=== PATIENT | male | born 1975 | race Caucasian/White ===

== ENCOUNTER 2019-10-01 16:24 | Emergency (ER) | payer OTHER ==
[~2019-10-01] VITALS: Ht 193 cm; Wt 104.3 kg
[2019-10-01 17:15] VITALS: BP 138/72
--- NOTE | 2019-10-01 18:03 | PHYS DOC ---
Adult General Chief Complaint Chief Complaint: HEMORRHOIDS HPI HPI Patient is a 43 year old female who presents with rectal pain. The patient states that this afternoon around 3:00 he had a really hard stool and after using the bathroom he had "flesh" outside of his rectum. He states he has a history of hemorrhoids and describes the pain as 6 out of 10 in severity and sharp. Review of Systems Review of Systems Constitutional: Denies fever or chills [] Eyes: Denies change in visual acuity, redness, or eye pain [] HENT: Denies nasal congestion or sore throat [] Respiratory: Denies cough or shortness of breath [] Cardiovascular: No additional information not addressed in HPI [] GI: Denies abdominal pain, nausea, vomiting, bloody stools or diarrhea. Report Rectal pain. : Denies dysuria or hematuria [] Musculoskeletal: Denies back pain or joint pain [] Integument: Denies rash or skin lesions [] Neurologic: Denies headache, focal weakness or sensory changes [] Endocrine: Denies polyuria or polydipsia [] Complete systems were reviewed and found to be within normal limits, except as documented in this note. Physical Exam Physical Exam Constitutional: Well developed, well nourished, no acute distress, non-toxic appearance. [] HENT: Normocephalic, atraumatic, bilateral external ears normal, oropharynx moist, no oral exudates, nose normal. [] Eyes: PERRLA, EOMI, conjunctiva normal, no discharge. [] Neck: Normal range of motion, no tenderness, supple, no stridor. [] Cardiovascular:Heart rate regular rhythm, no murmur [] Lungs & Thorax: Bilateral breath sounds clear to auscultation [] Abdomen: Bowel sounds normal, soft, no tenderness, no masses, no pulsatile masses. [] Skin: Warm, dry, no erythema, no rash. [] Back: No tenderness, no CVA tenderness. [] Extremities: No tenderness, no cyanosis, no clubbing, ROM intact, no edema. [] Neurologic: Alert and oriented X 3, normal motor function, normal sensory function, no focal deficits noted. [] Psychologic: Affect normal, judgement normal, mood normal. [] GI: Has External Hemorrhoids present. EKG EKG [] Radiology/Procedures Radiology/Procedures [] Course & Med Decision Making Course & Med Decision Making Pertinent Labs and Imaging studies reviewed. (See chart for details) Discussed with patient ways to not have hard stools such as taking Miralax. Recommend Preparation H over the counter. Grace Disclaimer Dragon Disclaimer This electronic medical record was generated, in whole or in part, using a voice recognition dictation system. Departure Departure Impression: Primary Impression: External hemorrhoid Disposition: HOME, SELF-CARE Condition: STABLE Referrals: NEELA OLIVIA DO (PCP) Patient Instructions: Hemorrhoids Additional Instructions: Thank you for visiting [facility]. We appreciate you trusting us with your care. If any additional problems come up don't hesitate to return to visit us. Please follow up with your primary care provider so they can plan additional care if needed and know about the problem that you had. If symptoms worsen come back to the Emergency Department. Any concerning symptoms that start such as chest pain, shortness of air, weakness or numbness on one side of the body, running high fevers or any other concerning symptoms return to the ER. Please pickers material [employer] Preparation H over the counter and Miralax. Please follow label instructions. MARISABEL ROBLES APRN Oct 01, 2019 18:03
== END 2019-10-01 18:22 | disposition home or self-care (01) ==
LOC: ER 16:24
DX: K64.4 Residual hemorrhoidal skin tags (principal)
CPT/HCPCS: 99281